=== PATIENT | female | born 1990 | race Caucasian/White ===

== ENCOUNTER 2016-10-31 02:53 | Emergency (ER) | payer BC ==
[~2016-10-31] VITALS: Ht 160 cm; Wt 87.2 kg
[2016-10-31 03:59] LABS: BASOPHIL % 0.1 % (0-2); PLATELET COUNT 262 x10^3mcL (130-400); RED CELL DISTRIBUTION WIDTH 14.2 % (11.5-14.5)
[2016-10-31 04:01] LABS: UA SPECIFIC GRAVITY <=1.005 (1.005-1.035); microscopic required? YES; urine erythrocyte 2+ (NEGATIVE)
[2016-10-31 04:07] LABS: CALCIUM 8.7 mg/dL (8.5-10.1); CARBON DIOXIDE 28.3 mmol/L (21-32); CHLORIDE SERUM 107 mmol/L (98-107); CREATININE SERUM 0.6 mg/dL (0.6-1.0); GFR1 > 60 mL/min; GLUCOSE SERUM 91 mg/dL (74-106); POTASSIUM SERUM 3.7 mmol/L (3.5-5.1); SODIUM SERUM 143 mmol/L (136-145)
[2016-10-31 04:11] LABS: ALBUMIN 3.4 g/dL (3.4-5.0); ALKALINE PHOSPHATASE 76 U/L (46-116); ALT/SGPT 16 U/L (14-59); AMYLASE 40 U/L (25-115); AST/SGOT 19 U/L (15-37); BILIRUBIN TOTAL 0.11 mg/dL (0.20-1.00); LIPASE 103 IU/L (73-393); TOTAL PROTEIN, SERUM 7.6 g/dL (6.4-8.2)
[2016-10-31 06:03] VITALS: BP 128/65
== END 2016-10-31 06:03 | disposition home or self-care (01) ==
LOC: ED 02:53
PROVIDERS: Emergency Medicine
DX: N83.201 Unspecified ovarian cyst, right side (principal); R10.32 Left lower quadrant pain; R31.9 Hematuria, unspecified; Z90.49 Acquired absence of other specified parts of digestive tract
CPT/HCPCS: 36415; Q0092

== ENCOUNTER 2017-04-16 23:52 | Emergency (ER) | payer SELFPAY ==
[~2017-04-16] VITALS: Ht 160 cm; Wt 91.6 kg
[2017-04-17 00:07] VITALS: Ht 160 cm; Wt 91.6 kg
[2017-04-17 03:53] LABS: BASOPHIL % 0.3 % (0-2); PLATELET COUNT 284 x10^3mcL (130-400); RED CELL DISTRIBUTION WIDTH 12.9 % (11.5-14.5)
[2017-04-17 04:15] LABS: CALCIUM 8.5 mg/dL (8.5-10.1); CARBON DIOXIDE 26.7 mmol/L (21-32); CHLORIDE SERUM 107 mmol/L (98-107); CREATININE SERUM 0.8 mg/dL (0.6-1.0); GFR1 > 60 mL/min; GLUCOSE SERUM 96 mg/dL (74-106); POTASSIUM SERUM 3.8 mmol/L (3.5-5.1); SODIUM SERUM 143 mmol/L (136-145)
[2017-04-17 05:15] VITALS: BP 147/82
== END 2017-04-17 06:13 | disposition home or self-care (01) ==
LOC: ED 23:52
PROVIDERS: Emergency Medicine
DX: K04.7 Periapical abscess without sinus (principal); Z90.49 Acquired absence of other specified parts of digestive tract
CPT/HCPCS: J1100; J1885; J3490; Q9967

== ENCOUNTER 2017-11-24 23:06 | Emergency (ER) | payer MEDICAID ==
[~2017-11-24] VITALS: Ht 157.5 cm; Wt 95.7 kg
[2017-11-24 23:12] VITALS: Ht 157.5 cm; Wt 95.7 kg
[2017-11-25 01:55] VITALS: BP 145/78
== END 2017-11-25 01:55 | disposition home or self-care (01) ==
LOC: ED 23:06
DX: S39.012A Strain of muscle, fascia and tendon of lower back, initial encounter (principal); S09.90XA Unspecified injury of head, initial encounter; M19.90 Unspecified osteoarthritis, unspecified site; Z90.49 Acquired absence of other specified parts of digestive tract; W19.XXXA Unspecified fall, initial encounter; Y93.89 Activity, other specified; Y92.89 Other specified places as the place of occurrence of the external cause; Y99.8 Other external cause status
CPT/HCPCS: J1885

== ENCOUNTER 2019-09-22 22:21 | Emergency (ER) | payer MEDICAID ==
[~2019-09-22] VITALS: Ht 160 cm; Wt 105.0 kg
[2019-09-22 22:39] VITALS: Ht 160 cm; Wt 105.0 kg
[2019-09-23 00:17] VITALS: BP 111/58
== END 2019-09-23 00:17 | disposition home or self-care (01) ==
LOC: ED 22:21
DX: K02.9 Dental caries, unspecified (principal); Z90.49 Acquired absence of other specified parts of digestive tract